=== PATIENT | female | born 1980 | race African-American/Black ===

== ENCOUNTER 2019-06-06 07:56 | Emergency (ER) | payer MEDICARE, MEDICAID ==
[~2019-06-06] VITALS: Ht 175.3 cm; Wt 106.7 kg
[~2019-06-06 07:56] MED LIST: HYDR25CA PO; TRAZ-219 PO
[2019-06-06 08:02] VITALS: BP 140/92
[2019-06-06] MEDS ORDERED: LIDOcaine 5% patch TP STA (08:20)
[2019-06-06] MEDS ORDERED: LIDO700A32 TOP (08:24)
[2019-06-06] MEDS ORDERED: ACET-2119 PO (08:24)
== END 2019-06-06 08:50 | disposition home or self-care (01) ==
LOC: ER 07:57
DX: M54.5 Low back pain (principal); M79.674 Pain in right toe(s); M25.561 Pain in right knee; I10 Essential (primary) hypertension; M19.90 Unspecified osteoarthritis, unspecified site; F41.9 Anxiety disorder, unspecified; F32.9 Major depressive disorder, single episode, unspecified; F15.90 Other stimulant use, unspecified, uncomplicated; Z98.890 Other specified postprocedural states; Z88.0 Allergy status to penicillin; Z88.2 Allergy status to sulfonamides; Z79.899 Other long term (current) drug therapy; W18.39XA Other fall on same level, initial encounter; Y93.01 Activity, walking, marching and hiking; Y92.89 Other specified places as the place of occurrence of the external cause; Y99.8 Other external cause status
CPT/HCPCS: 99283

== ENCOUNTER 2019-08-26 11:30 | Emergency (ER) | payer MEDICARE, MEDICAID ==
[~2019-08-26] VITALS: Ht 175.3 cm; Wt 106.4 kg
[~2019-08-26 11:30] MED LIST changes: +LIDO700A32 TOP
[2019-08-26 12:05] LABS: BASOPHILS % (AUTO) 0.6 % (0-1); EOSINOPHILS # (AUTO) 0.1 X10'3 (0-0.9); HEMATOCRIT 45.2 % (35.0-45.0); HEMOGLOBIN 15.9 g/dl (12.0-16.0); LYMPHOCYTES # (AUTO) 1.6 X10'3 (1.1-4.8); LYMPHOCYTES % (AUTO) 24.1 % (21-51); MEAN CORPUSCULAR HEMOGLOBIN 30.6 PG (27.0-31.0); MEAN CORPUSCULAR HGB CONC 35.1 g/dL (33.0-36.5); MEAN CORPUSCULAR VOLUME 87.1 FL (78-98); MEAN PLATELET VOLUME 7.2 FL (7.4-10.4); MONOCYTES # (AUTO) 0.5 X10'3 (0-0.9); MONOCYTES % (AUTO) 7.9 % (2-12); NEUTROPHILS # (AUTO) 4.4 X10'3 (1.8-7.7); NEUTROPHILS % (AUTO) 65.4 % (42-75); PLATELET COUNT 288 X10'3 (140-440); RED BLOOD COUNT 5.19 X10'6 (4.20-5.60); RED CELL DISTRIBUTION WIDTH 14.1 % (11.5-14.5); WHITE BLOOD COUNT 6.7 X10'3 (4.5-11.0)
[2019-08-26 12:20] LABS: ALANINE AMINOTRANSFERASE 15 U/L (12-78); ALBUMIN/GLOBULIN RATIO 0.9 (1.1-1.5); ALKALINE PHOSPHATASE 69 IU/L (46-116); ANION GAP 12 (8-16); ASPARTATE AMINO TRANSFERASE 11 U/L (10-37); BILIRUBIN,TOTAL 0.9 MG/DL (0.1-1.0); BLOOD UREA NITROGEN 9 MG/DL (7-18); BUN/CREATININE RATIO 9.2 (6.6-38.0); CALCIUM 9.4 MG/DL (8.5-10.1); CHLORIDE 105 MMOL/L (99-107); CREATININE 0.98 MG/DL (0.40-0.90); GLUCOSE 101 MG/DL (70-104); SODIUM 140 MMOL/L (135-145); TOTAL CARBON DIOXIDE 23.3 MMOL/L (24-32); TOTAL PROTEIN 8.3 G/DL (6.4-8.2); eGFR 76 ML/MIN
[2019-08-26 12:28] LABS: POTASSIUM 3.8 MMOL/L (3.5-5.1)
--- NOTE | 2019-08-26 12:50 | NUR ---
Pt ambulatory to the restroom to attempt to provide urine.
[2019-08-26] MEDS ORDERED: ketorolac trometh inj. 60 MG/2 ML VIAL IM ONE (13:00)
--- NOTE | 2019-08-26 13:11 | NUR ---
Pt given a liter of ice water to drink, with Physician approval prior to the US. Pt medicated as ordered for pain by staff nurse.
[2019-08-26 13:28] LABS: CLARITY,URINE CLOUDY (Clear); COLOR,URINE YELLOW (Yellow); GLUCOSE, URINE NEGATIVE (Neg); KETONES,URINE NEGATIVE (Neg); LEUKOCYTE ESTERASE ,URINE SMALL (Neg); NITRITES, URINE NEGATIVE (Neg); OCCULT BLOOD,URINE TRACE-INTACT (Neg); PH,URINE 7.5 (4.8-8.0); PROTEIN,URINE 30 mg/dl (Neg); URINE HCG NEGATIVE (NEG); UROBILINOGEN,URINE 0.2 E.U/dL (0.2-1.0)
[2019-08-26 13:32] LABS: UA COLLECTION TYPE CLN CATCH MIDSTREAM
[2019-08-26 13:50] VITALS: BP 153/110
[2019-08-26 14:01] LABS: BACTERIA,URINE 1+ /HPF (Neg); MUCUS STRANDS FEW /LPF (Neg); RBC,URINE 0-2 /HPF (0-2); SQUAMOUS EPITHELIAL CELL,UR MANY /LPF (FEW)
== END 2019-08-26 15:01 | disposition home or self-care (01) ==
LOC: ER 11:31
DX: R10.31 Right lower quadrant pain (principal); R10.32 Left lower quadrant pain; I10 Essential (primary) hypertension; M19.90 Unspecified osteoarthritis, unspecified site; F41.9 Anxiety disorder, unspecified; F32.9 Major depressive disorder, single episode, unspecified; F15.90 Other stimulant use, unspecified, uncomplicated; Z88.0 Allergy status to penicillin; Z88.2 Allergy status to sulfonamides; Z79.899 Other long term (current) drug therapy
CPT/HCPCS: 36415; 76856; 80053; 81001; 81025; 85025; 96372; 99284; J1885

== ENCOUNTER 2019-09-12 09:14 | Emergency (ER) | payer MEDICARE, MEDICAID ==
[~2019-09-12] VITALS: Ht 175.3 cm; Wt 93.5 kg
[2019-09-12] MEDS ORDERED: HYDROcodone/acetaminophen 5mg/325mg tablet PO STA (09:49)
[2019-09-12] MEDS ORDERED: ondansetron 4mg rapidly disintigrating tab PO ONE (09:50)
[2019-09-12] MEDS ORDERED: ketorolac trometh inj. 60 MG/2 ML VIAL IM ONE (09:50)
[2019-09-12] MEDS ORDERED: HYDR-3965 PO (10:01)
[2019-09-12] MEDS ORDERED: IBUP-1985 PO (10:05)
[2019-09-12 10:06] VITALS: BP 146/103
[2019-09-12] MEDS ORDERED: ESCI20TA PO (10:09)
[2019-09-12] MEDS ORDERED: LIDOcaine 5% patch TP ONE (10:20)
== END 2019-09-12 10:40 | disposition home or self-care (01) ==
LOC: ER 09:15
DX: S13.8XXA Sprain of joints and ligaments of other parts of neck, initial encounter (principal); S43.491A Other sprain of right shoulder joint, initial encounter; I10 Essential (primary) hypertension; M19.90 Unspecified osteoarthritis, unspecified site; F41.9 Anxiety disorder, unspecified; F32.9 Major depressive disorder, single episode, unspecified; F15.90 Other stimulant use, unspecified, uncomplicated; Z88.0 Allergy status to penicillin; Z88.2 Allergy status to sulfonamides; Z79.899 Other long term (current) drug therapy; X58.XXXA Exposure to other specified factors, initial encounter; Y93.89 Activity, other specified; Y92.89 Other specified places as the place of occurrence of the external cause; Y99.8 Other external cause status
CPT/HCPCS: 96372; 99284; J1885

== ENCOUNTER 2019-09-30 07:00 | Day surgery (SDC) | payer MEDICARE, MEDICAID ==
[2019-09-29 17:18] LABS: BASOPHILS # (AUTO) 0.1 X10'3 (0-0.2); BASOPHILS % (AUTO) 0.8 % (0-1); EOSINOPHILS # (AUTO) 0.2 X10'3 (0-0.9); EOSINOPHILS % (AUTO) 3.1 % (0-6); LYMPHOCYTES # (AUTO) 2.3 X10'3 (1.1-4.8); LYMPHOCYTES % (AUTO) 32.2 % (21-51); MEAN CORPUSCULAR HEMOGLOBIN 30.7 PG (27.0-31.0); MEAN CORPUSCULAR HGB CONC 35.2 g/dL (33.0-36.5); MEAN CORPUSCULAR VOLUME 87.1 FL (78-98); MEAN PLATELET VOLUME 7.5 FL (7.4-10.4); MONOCYTES # (AUTO) 0.6 X10'3 (0-0.9); MONOCYTES % (AUTO) 7.9 % (2-12); PRE OP HEMOGLOBIN 14.4 g/dL (12.0-16.0); PRE OP PLATELET COUNT 274 X10'3 (140-440); RED CELL DISTRIBUTION WIDTH 13.6 % (11.5-14.5)
[2019-09-29 17:32] LABS: ALBUMIN 3.6 G/DL (3.4-5.0); ALBUMIN/GLOBULIN RATIO 1.1 (1.1-1.5); ALKALINE PHOSPHATASE 61 IU/L (46-116); BLOOD UREA NITROGEN 10 MG/DL (7-18); BUN/CREATININE RATIO 8.4 (6.6-38.0); CALCIUM 8.9 MG/DL (8.5-10.1); CHLORIDE 104 MMOL/L (99-107); CREATININE 1.19 MG/DL (0.40-0.90); PRE OP ALT 11 U/L (30-65); PRE OP ANION GAP 10 (8-16); PRE OP AST 12 U/L (10-37); PRE OP BILIRUB, TOTAL 0.6 MG/DL (0.0-1.0); PRE OP GLUCOSE 89 MG/DL (70-104); PRE OP POTASSIUM 3.6 MMOL/L (3.4-5.1); PRE OP SODIUM 139 MMOL/L (135-145); eGFR 61 ML/MIN
[~2019-09-30] VITALS: Ht 175.3 cm; Wt 108.0 kg
[2019-09-30] VITALS (9 sets, daily range): BP systolic 114–164; BP diastolic 77–117
[~2019-09-30 07:00] MED LIST changes: +ESCI20TA PO; -HYDR25CA PO; -LIDO700A32 TOP; +albuterol 2.5 MG/3 ML nebule NEB ONE; +clindamycin-Cleocin 900mg/D5W 50 ML IV ONE; +famotidine 20mg tablet PO ONE; +ringers solution, lacted 1,000 ML IV SCH
[2019-09-30] MEDS ORDERED: ketorolac trometh. 30mg/ml inj. ONE (07:25)
[2019-09-30] MEDS ORDERED: ROPIVAcaine 0.5% (5mg/ml) 30ml vial ONE (07:25)
[2019-09-30] MEDS ORDERED: LIDOcaine 1% 30ml preserv. free vial ONE (07:25)
[2019-09-30] MEDS ORDERED: BUPIVAcaine/PF 2.5 mg/ml (0.25%) 30ml vial ONE (07:25)
[2019-09-30] MEDS ORDERED: ringers solution, lacted 1,000 ML IV SCH ×2 (08:38→09:51)
[2019-09-30] MEDS ORDERED: morphine 4 MG/ML inj SYRINge IV PRN ×4 (08:40→09:55)
[2019-09-30] MEDS ORDERED: ondansetron/PF 4mg/2ml inj IV PRN ×2 (08:40→09:55)
[2019-09-30] MEDS ORDERED: proCHLORperazine 10 MG/2 ml inj IV PRN ×2 (08:40→09:55)
[2019-09-30] MEDS ORDERED: meperidine/PF 25mg/ml syringe IV PRN ×5 (08:40→09:55)
[2019-09-30] MEDS ORDERED: midazolam 2 mg/2 ml injection ONE ×2 (08:47)
[2019-09-30] MEDS ORDERED: fentaNYL /PF 50mcg/ml 5ml ampule ONE (08:47)
[2019-09-30] MEDS ORDERED: propofol inj 20 ML IV ONE (08:48)
[2019-09-30] MEDS ORDERED: rocuronium 10mg/ml inj IV ONE (08:48)
[2019-09-30] MEDS ORDERED: sevoflurane 250ml liquid IH ONE (08:51)
[2019-09-30] MEDS ORDERED: neostigmine methylsulfate 1 MG/ML 10ml vial ONE (10:04)
[2019-09-30] MEDS ORDERED: labetalol 20mg/4ml (5mg/ml) syringe IV ONE (10:04)
[2019-09-30] MEDS ORDERED: glycopyrrolate 0.2mg/ml inj ONE (10:04)
--- NOTE | 2019-09-30 10:30 | NUR ---
Received from OR via BED , accompanied by Anesthesiologist DR GARCIA and report given by Anesthesiolgist. PATIENT WAKING UP, DENIES PAIN, V/S WNL, NEUROVASCULAR CHECKS INTACT, 20G PIV LUE, SCD ON, BANDAIDS TO LAP SIGHTS OF ABDOMEN CDI WITH ABD BINDER ON.
[2019-09-30] MEDS ORDERED: oxyCODONE/APAP 10/325mg tablet PO PRN ×2 (10:45)
[2019-09-30] MEDS: meperidine/PF 25mg/ml syringe IV PRN ×2 (10:52→11:03)
--- NOTE | 2019-09-30 11:30 | NUR ---
PATIENT A&OX4, DENIES PAIN, V/S WNL, NEUROVASCULAR CHECKS INTACT, 20G PIV LUE D/C, SCD OFF, BANDAIDS TO LAP SIGHTS OF ABDOMEN CDI WITH ABD BINDER ON. I HAVE REVIEWED D/C INSTRUCTIONS WITH PATIENT AND FAMILY HAVE VERBALIZED UNDERSTANDING.PATIENT WAS D/C HOME WITH ALL BELONGINGS AND FAMILY GAVE TRANSPORT HOME.
== END 2019-09-30 11:30 | disposition home or self-care (01) ==
LOC: PAS 07:00
PROVIDERS: ATTEND Surgery
DX: K43.6 Other and unspecified ventral hernia with obstruction, without gangrene (principal); F32.9 Major depressive disorder, single episode, unspecified; I12.9 Hypertensive chronic kidney disease with stage 1 through stage 4 chronic kidney disease, or unspecified chronic kidney disease; N18.9 Chronic kidney disease, unspecified; F41.9 Anxiety disorder, unspecified; E66.9 Obesity, unspecified; Z68.35 Body mass index [BMI] 35.0-35.9, adult; Z98.890 Other specified postprocedural states; Z79.899 Other long term (current) drug therapy; F17.210 Nicotine dependence, cigarettes, uncomplicated; Z88.0 Allergy status to penicillin; Z88.2 Allergy status to sulfonamides
CPT/HCPCS: 36415; 49653; 64488; 80053; 82948; 85025; 93005; C1781; J1885; J2001; J2175; J2250; J2704; J2710; J3010; J3490; A4215; A4618; J2795; J7120

== ENCOUNTER 2019-10-19 10:40 | Emergency (ER) | payer MEDICARE, MEDICAID ==
[~2019-10-19] VITALS: Ht 175.3 cm; Wt 120.0 kg
[~2019-10-19 10:40] MED LIST changes: -albuterol 2.5 MG/3 ML nebule NEB ONE; -clindamycin-Cleocin 900mg/D5W 50 ML IV ONE; -famotidine 20mg tablet PO ONE; -ringers solution, lacted 1,000 ML IV SCH
[2019-10-19 10:42] VITALS: BP 177/112
--- NOTE | 2019-10-19 11:33 | NUR ---
explained to pt. that a provider would be in to see her as soon as possible.
--- NOTE | 2019-10-19 11:37 | NUR ---
pt. left without being seen by a provider
== END 2019-10-19 11:39 | disposition left against medical advice (07) ==
LOC: ER 10:40
DX: K08.89 Other specified disorders of teeth and supporting structures (principal); Z53.21 Procedure and treatment not carried out due to patient leaving prior to being seen by health care provider

== ENCOUNTER 2022-02-16 13:27 | Emergency (ER) | payer MEDICARE, MEDICAID ==
[~2022-02-16] VITALS: Ht 175.3 cm; Wt 260.0 kg
[~2022-02-16 13:27] MED LIST changes: -TRAZ-219 PO; +TRAZ-256 PO
[2022-02-16 14:18] LABS: BASOPHILS # (AUTO) 0.1 X10'3 (0-0.2); BASOPHILS % (AUTO) 0.7 % (0-1); EOSINOPHILS # (AUTO) 0.1 X10'3 (0-0.9); EOSINOPHILS % (AUTO) 1.7 % (0-6); HEMATOCRIT 48.4 % (35.0-45.0); HEMOGLOBIN 16.3 g/dl (12.0-16.0); LYMPHOCYTES # (AUTO) 2.3 X10'3 (1.1-4.8); LYMPHOCYTES % (AUTO) 28.8 % (21-51); MEAN CORPUSCULAR HEMOGLOBIN 28.8 PG (27.0-31.0); MEAN CORPUSCULAR HGB CONC 33.6 g/dL (33.0-36.5); MEAN CORPUSCULAR VOLUME 85.9 FL (78-98); MEAN PLATELET VOLUME 7.7 FL (7.4-10.4); MONOCYTES # (AUTO) 0.5 X10'3 (0-0.9); MONOCYTES % (AUTO) 6.8 % (2-12); NEUTROPHILS # (AUTO) 4.9 X10'3 (1.8-7.7); PLATELET COUNT 288 X10'3 (140-440); RED BLOOD COUNT 5.64 X10'6 (4.20-5.60); WHITE BLOOD COUNT 7.9 X10'3 (4.5-11.0)
[2022-02-16 14:34] LABS: ALANINE AMINOTRANSFERASE 24 U/L (12-78); ALBUMIN/GLOBULIN RATIO 1.1 (1.1-1.5); ALKALINE PHOSPHATASE 64 IU/L (46-116); ANION GAP 9 (8-16); ASPARTATE AMINO TRANSFERASE 18 U/L (10-37); BILIRUBIN,TOTAL 0.9 MG/DL (0.1-1.0); BLOOD UREA NITROGEN 11 MG/DL (7-18); BUN/CREATININE RATIO 11.6 (6.6-38.0); CALCIUM 9.3 MG/DL (8.5-10.1); CHLORIDE 105 MMOL/L (99-107); CREATININE 0.95 MG/DL (0.40-0.90); GLUCOSE 99 MG/DL (70-104); POTASSIUM 3.8 MMOL/L (3.5-5.1); SODIUM 140 MMOL/L (135-145); TOTAL PROTEIN 7.7 G/DL (6.4-8.2); eGFR 78 ML/MIN
[2022-02-16 15:27] VITALS: BP 147/78
== END 2022-02-16 15:28 | disposition home or self-care (01) ==
LOC: ER 13:28
DX: R42 Dizziness and giddiness (principal); I10 Essential (primary) hypertension; R09.81 Nasal congestion; M19.90 Unspecified osteoarthritis, unspecified site; F15.90 Other stimulant use, unspecified, uncomplicated; Z72.89 Other problems related to lifestyle; Z88.0 Allergy status to penicillin; Z88.2 Allergy status to sulfonamides; Z79.899 Other long term (current) drug therapy
CPT/HCPCS: 36415; 71045; 80053; 83880; 84484; 85025; 93005; 99285

== ENCOUNTER 2022-05-16 14:35 | Inpatient (IN) | payer MEDICARE, MEDICAID ==
[~2022-05-16] VITALS: Ht 175.3 cm; Wt 103.2 kg
[2022-05-16 16:15] VITALS: BP 159/104
[2022-05-16] MEDS ORDERED: loperamide 2mg capsule PO PRN (16:30)
[2022-05-16] MEDS ORDERED: magnesium hydroxide 30ml (MOM) UD suspension PO PRN (16:30)
[2022-05-16] MEDS ORDERED: NICOTINE POLACRILEX 2 MG LOZENGE BC PRN (16:30)
[2022-05-16] MEDS: acetaminophen 325mg tablet PO PRN (16:50)
[2022-05-16] MEDS ORDERED: nicotine 21mg patch - 24 hr TD ONE (17:25)
--- NOTE | 2022-05-16 17:42 | NUR ---
ADMIT NOTE Patient is a 42 y/o female on a 5150 for Grave Disability. Transferred from [facility] by [facility] and admitted to [facility] at 1615. She was [place] from the [place] on [place]13 after she had been standing in it for a few hours. She stated she did this to cool down. She presented at the ER with disorganized thoughts and rambling speech without a plan for food, senior care, and clothing. She has a hx of multiple psychiatric hospitalizations and is connected to services at [facility]. Tox + amphetamines Patient was calm and cooperative with admission process. Thoughts are linear and goal directed. Denies active S/I, but states she does sometimes wish she would go to sleep and not wake up. Safety check completed and belongings inventoried. Oriented to unit. 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 She receives prescription amphetamine salts (verified by external med hx)
[2022-05-16] MEDS ORDERED: HYDR-3686 PO ×2 (18:00→18:04)
[2022-05-16 20:25] VITALS: BP 131/94
[2022-05-16] MEDS: nystatin 15 GM powder TP SCH (20:30)
[2022-05-16] MEDS: mag hydrox/Alum hydrox/simeth 30ml oral suspension PO PRN (22:18)
[2022-05-17] MEDS: hydrOXYzine 25 MG tablet PO PRN ×2 (00:25→21:14)
[2022-05-17] MEDS: traZODone 50mg tablet PO PRN ×2 (00:33→21:15)
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
[2022-05-17 07:41] VITALS: BP 134/94
[2022-05-17] MEDS: nystatin 15 GM powder TP SCH ×2 (08:00→21:15)
[2022-05-17] MEDS: nicotine 21mg patch - 24 hr TD SCH (08:00)
--- NOTE | 2022-05-17 09:43 | NUR ---
Pt. attended group today. Today we discussed Wellness and utilized the Self Care Wheel to help Patients determine the wellness/self-care activities they enjoy in each domain presented in the wheel. The four domains are the physical, spiritual, emotional and physical. We then did an art expression call Path to Wellness. Pt. engaged in the group appropriately. She engaged in the Art Expression and shared her thoughts and feelings appropriately. Her demeanor was pleasant and compliant. She was able to show what her steps to wellness are, much of her steps centered around her spirituality. Her thought content and thought process appeared WNL today when sharing. She was alert and oriented X 4. Linsey Melton LCSW
[2022-05-17 09:55] LABS: HEMOGLOBIN A1C 5.2 % (4.5-6.2)
[2022-05-17 09:58] LABS: CHOL/HDL RATIO 5.5 (0.00-4.99); CHOLESTEROL 191 MG/DL (0-200); HDL CHOLESTEROL 35 MG/DL (35-60); LDL CHOLESTEROL 142 MG/DL (50-100); TRIGLYCERIDES 79 MG/DL (20-135)
[2022-05-17] MEDS: acetaminophen 325mg tablet PO PRN ×2 (11:32→17:17)
--- NOTE | 2022-05-17 16:56 | NUR ---
Nursing Progress Note: Mary Problem : Patient is a 42 y/o female on a 5150 for Grave Disability. Transferred from [facility] by [facility] and admitted to [facility] at 1615. She was [place] from [place] on 05[place]13 after she had been standing in it for a few hours. She stated she did this to cool down. She presented at the ER with disorganized thoughts and rambling speech without a plan for food, chcf, and clothing. She has a hx of multiple psychiatric hospitalizations and is connected to services at [facility]. Pt. reports feeling hopeless and was tearful. Interventions : Maintained a safe and supportive environment, administered medication per orders with no adverse side effects, provided clear and simple instructions, provided active listening and positive encouragement, encouraged participation on the unit and with ADLs Response : Pt. denies SI, HI, A/VH, she denies any recent SA instead stating the river was just a cool off pt. does endorses MH Hx with supportive medications, she states my recent problem was my medications were changed Pt. communicates in a slow pace, but doesnt appear guarded. She reports BLE burning and pain provider notified and PRN Tylenol given; not effective. This afternoon pt. approached travel writer elyssa and regional support, she reported she had a phone call with her mother resulting in her feeling alone and without any family support Pt. ate all her meals in the main ding room she was observed making eye contact but doesnt engage socially. She attended group today. Plan : Patient requires crisis stabilization. She continues to require a safe and supportive environment until stabilized.
[2022-05-17] MEDS ORDERED: venlafaxine XR 37.5mg cap (Q24H) PO ONE (19:15)
[2022-05-17 20:00] VITALS: BP 117/82
--- NOTE | 2022-05-18 02:16 | NUR ---
Nursing Progress Note: Mary Problem : Patient is a 42 y/o female on a 5150 for Grave Disability. Transferred from [facility] by [facility] and admitted to [facility] at 1615. She was [place] from the [place] on 05/13 after she had been standing in it for a few hours. She stated she did this to cool down. She presented at the ER with disorganized thoughts and rambling speech without a plan for food, correction, and clothing. She has a hx of multiple psychiatric hospitalizations and is connected to services at [facility]. Pt. reports feeling hopeless and was tearful. Interventions : Maintained a safe and supportive environment, administered medication per orders with no adverse side effects, provided clear and simple instructions, provided active listening and positive encouragement, encouraged participation on the unit and with ADLs Response : Pt isolates to her room most of the shift laying down quietly and then sleeping. She is cooperative on 1:1 denies SI/HI/AH/VH at this time. She does state she feels alone and depressed because her mother said mean things to her on the phone. "I thought I had support but now I think I have no one." RN offers reassurance to pt and therapeutic listening. She gets teary eyed while talking about her mother but soon calms down. She utilizes PRN trazodone and atarax with good effect. Plan : Patient requires crisis stabilization. She continues to require a safe and supportive environment until stabilized.
[2022-05-18] MEDS: nicotine 21mg patch - 24 hr TD SCH (07:16)
[2022-05-18] MEDS: venlafaxine XR 75mg capsule (Q24H) PO SCH (07:16)
[2022-05-18] MEDS: atorvastatin 20mg tablet PO SCH (07:16)
[2022-05-18 08:00] VITALS: BP 134/86
[2022-05-18] MEDS: nystatin 15 GM powder TP SCH ×2 (08:00→20:00)
[2022-05-18] MEDS: acetaminophen 325mg tablet PO PRN (08:01)
[2022-05-18 14:03] VITALS: BP 134/86
--- NOTE | 2022-05-18 14:10 | NUR ---
Assessment: Presenting Issues: LE found pt floating [place] the [place], pt was disorganized & confused and unable to communicate needs, pt evaluated and 5150 due to DTS concerns. Interventions: Clinician met w/pt & engaged her in completing the psychosocial assessment. Pt was pleasant & cooperative. Pt verbalized significant anxiety associated w/d/c worries that she will not be able to manage w/o support upon d/c. Pt reports that she is currently homeless, has SSI-901/mo and she manages her own $. Pt endorses depressive sxs- negative self esteem, belief that she has "nothing". MSE: TP-linear & logical TC-focused on losses & housing Mood-Anxious, depressed Affect-mood congruent Fbaskvy-Rjas-tihsngj as pt is impulsive w/decision making Judgement-guarded Pt expressed that she's not ready to d/c yet wants to stay "here forever". Clinician provided info about [facility] pt open to this but right away went to worries about what happens if it takes [facility] too long to find me housing. Pt requested for housing w/on site med support. Plan: Clinician will provide [facility] referral when appropriate. Addendum: 05/18/22 at 1423 by Lyssa Otero SS Amended: Links added.
--- NOTE | 2022-05-18 16:50 | NUR ---
Nursing Progress Note: Mary Problem : Patient is a 42 y/o female on a 5150 for Grave Disability. Transferred from [facility] by [facility] and admitted to [facility] at 1615. She was [place] on 05/13 after she had been standing in it for a few hours. She stated she did this to cool down. She presented at the ER with disorganized thoughts and rambling speech without a plan for food, alf, and clothing. She has a hx of multiple psychiatric hospitalizations and is connected to services at [facility]. Pt. reports feeling hopeless and was tearful. Interventions : Maintained a safe and supportive environment, administered medication per orders with no adverse side effects, provided clear and simple instructions, provided active listening and positive encouragement, encouraged participation on the unit and with ADLs Response : Pt. denies SI, HI, A/VH, she presents more optimistic and is looking forward to discharge. Pt. denies depression and has been out of her room more often today. Pt. requested and took a shower and participated in group. She ate all meals in the dining room and socializes with a few other female cohorts. She reported BLE pain PRN Tylenol; not too effective. Plan : Patient requires crisis stabilization. She continues to require a safe and supportive environment until stabilized.
[2022-05-18 20:00] VITALS: BP 123/70
[2022-05-18] MEDS: hydrOXYzine 25 MG tablet PO PRN (20:43)
[2022-05-18] MEDS: traZODone 50mg tablet PO PRN (20:43)
[2022-05-18 21:42] VITALS: BP 123/70
--- NOTE | 2022-05-18 23:41 | NUR ---
Nursing Progress Note: Mary Problem : Patient is a 42 y/o female on a 5150 for Grave Disability. Transferred from [facility] by [facility] and admitted to [facility] at 1615. She was [place] from the [place] on 05/13 after she had been standing in it for a few hours. She stated she did this to cool down. She presented at the ER with disorganized thoughts and rambling speech without a plan for food, half-way, and clothing. She has a hx of multiple psychiatric hospitalizations and is connected to services at [facility]. Pt. reports feeling hopeless and was tearful. Interventions : Maintained a safe and supportive environment, administered medication per orders with no adverse side effects, provided clear and simple instructions, provided active listening and positive encouragement, encouraged participation on the unit and with ADLs Response : Pt remains in her room the entirety of the shift. She states she is feeling better today now that she spoke with her mother who she previously thought disowned her. "She is going to buy me slippers from [employer] and some other stuff I need and maybe visit me." She is upbeat and more content this shift. She denies all MH symptoms. She utilizes PRN trazodone and atarax with good effect. Plan : Patient requires crisis stabilization. She continues to require a safe and supportive environment until stabilized.
[2022-05-19] MEDS: atorvastatin 20mg tablet PO SCH (07:18)
[2022-05-19] MEDS: venlafaxine XR 75mg capsule (Q24H) PO SCH (07:18)
[2022-05-19] MEDS: nicotine 21mg patch - 24 hr TD SCH (07:19)
[2022-05-19] MEDS: acetaminophen 325mg tablet PO PRN ×2 (07:19→15:03)
[2022-05-19 08:00] VITALS: BP 133/84
[2022-05-19] MEDS: nystatin 15 GM powder TP SCH ×2 (08:00→20:09)
[2022-05-19] MEDS: mag hydrox/Alum hydrox/simeth 30ml oral suspension PO PRN (11:07)
--- NOTE | 2022-05-19 15:56 | NUR ---
Nursing Progress Note: Mary Problem: Patient is a 42 y/o female on a 5150 for Grave Disability. Transferred from [facility] by [facility] and admitted to [facility] at 1615. She was [place] from [place] on 05[place]13 after she had been standing in it for a few hours. She stated she did this to cool down. She presented at the ER with disorganized thoughts and rambling speech without a plan for food, senior living, and clothing. She has a hx of multiple psychiatric hospitalizations and is connected to services at [facility]. Pt. presents as upbeat, well groomed, and socializing more today. Interventions: Maintained a safe and supportive environment, administered medication per orders with no adverse side effects, provided clear and simple instructions, provided active listening and positive encouragement, encouraged participation on the unit and with ADLs Response: Pt. denies SI, HI, A/VH, she denies depression and has been out of her room more, and attended group. Pt. was observed socializing with roommate. Pt. remains upbeat and received clothing from her mother which appeared to make her happy. She ate all meals in the dining room and socializes with others. She reported BLE pain PRN Tylenol; not too effective; provider to be updated today. Plan: Patient requires crisis stabilization. She continues to require a safe and supportive environment until stabilized.
[2022-05-19 19:45] VITALS: BP 115/79
[2022-05-19] MEDS: hydrOXYzine 25 MG tablet PO PRN (20:05)
[2022-05-19] MEDS: traZODone 50mg tablet PO PRN (22:12)
--- NOTE | 2022-05-20 00:37 | NUR ---
Nursing Progress Note: Mary Problem : Patient is a 42 y/o female on a 5150 for Grave Disability. Transferred from [facility] by [facility] and admitted to [facility] at 1615. She was [place] from the [place] on 05/13 after she had been standing in it for a few hours. She stated she did this to cool down. She presented at the ER with disorganized thoughts and rambling speech without a plan for food, half-way, and clothing. She has a hx of multiple psychiatric hospitalizations and is connected to services at [facility]. Pt. reports feeling hopeless and was tearful. Interventions : Maintained a safe and supportive environment, administered medication per orders with no adverse side effects, provided clear and simple instructions, provided active listening and positive encouragement, encouraged participation on the unit and with ADLs Response : Pt lying in bed at shift change. Pt 1:1, pt denies MH S/S. The pt reports wanting to go to bed earlier tonight and wants her medications given early. it was explained to the pt that med pass starts at 8PM and that I could make sure that her medications were given first, which she was okay with. The pt then stated that she was tired all day and would like to try to take Hydroxyzine instead of the trazodone. pt took hydroxyzine at med pass, an hour later the pt got up and exclaimed that she needed the Trazodone to sleep as she did not feel tired. The pt was given the Trazodone and fell asleep shortly after. Plan : Patient requires crisis stabilization. She continues to require a safe and supportive environment until stabilized.
[2022-05-20] MEDS: nystatin 15 GM powder TP SCH ×2 (07:55→20:50)
[2022-05-20] MEDS: nicotine 21mg patch - 24 hr TD SCH (07:55)
[2022-05-20] MEDS: atorvastatin 20mg tablet PO SCH (07:56)
[2022-05-20] MEDS: venlafaxine XR 75mg capsule (Q24H) PO SCH (07:56)
[2022-05-20] MEDS: acetaminophen 325mg tablet PO PRN ×2 (07:58→18:49)
[2022-05-20 08:32] VITALS: BP 141/72
--- NOTE | 2022-05-20 10:34 | NUR ---
Initial: Pt admit for MDD and psychosis. Currently on a regular diet and eating well with mostly 100% PO intake throughout LOS. [facility] 05/18, with PRN bowel care available. No nutrition intervention implemented at this time. Will continue to follow and make recommendations as appropriate. Recommendations: 1) Continue regular diet 2) Bowel care PRN 3) Weekly scaled weights Addendum: 05/20/22 at [address] Amended: Links added.
[2022-05-20] MEDS: calcium carbonate 500mg chew tablet PO PRN (12:40)
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
[2022-05-20 19:23] VITALS: BP 111/76
[2022-05-20] MEDS: hydrOXYzine 25 MG tablet PO PRN (20:01)
[2022-05-20] MEDS: traZODone 50mg tablet PO PRN (20:01)
--- NOTE | 2022-05-21 00:45 | NUR ---
Nursing Progress Note: Mary Problem : Patient is a 42 y/o female on a 5150 for Grave Disability. Transferred from [facility] by [facility] and admitted to [facility] at 1615. She was [place] from [place] on 05/13 after she had been standing in it for a few hours. She stated she did this to cool down. She presented at the ER with disorganized thoughts and rambling speech without a plan for food, fpc, and clothing. She has a hx of multiple psychiatric hospitalizations and is connected to services at [facility]. Pt. reports feeling hopeless and was tearful. Interventions : Maintained a safe and supportive environment, administered medication per orders with no adverse side effects, provided clear and simple instructions, provided active listening and positive encouragement, encouraged participation on the unit and with ADLs Response : Patient in room at shift change. Pt reports that she wants to switch rooms due to having her own room in other facilities. Pt states that she likes her roommate but just wants to be alone. The Pt denies all MH S/S. Patient asked for both Hydroxyzine and Trazodone at bedtime for anxiety and sleep. Pt took evening meds w/o complications. Pt was able to sleep shortly after. Refused snack. Plan : Patient requires crisis stabilization. She continues to require a safe and supportive environment until stabilized.
[2022-05-21 08:00] VITALS: BP 140/90
[2022-05-21] MEDS: nicotine 21mg patch - 24 hr TD SCH (08:15)
[2022-05-21] MEDS: atorvastatin 20mg tablet PO SCH (08:15)
[2022-05-21] MEDS: venlafaxine XR 75mg capsule (Q24H) PO SCH (08:15)
[2022-05-21] MEDS: nystatin 15 GM powder TP SCH (08:15)
[2022-05-21] MEDS: acetaminophen 325mg tablet PO PRN ×3 (08:16→21:58)
[2022-05-21] MEDS ORDERED: LORazepam 0.5 MG tablet PO ONE (08:50)
--- NOTE | 2022-05-21 08:51 | NUR ---
PRNs Administered: Ativan 0.5mg once for anxiety Interventions Offered: Pt. was provided with a quiet environment free from distractions. Response to Medication: Pt. thanked this auto service writer for the medication, will continue to monitor closely
--- NOTE | 2022-05-21 10:07 | NUR ---
Pt's ordered Nystatin powder for under bilateral breasts was changed to Nystatin Cream per Dr. Hodges. A small amount of redness is present at areas, however no s/s of infection.
[2022-05-21] MEDS: hydrOXYzine 25 MG tablet PO PRN (13:49)
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
[2022-05-21 19:41] VITALS: BP 127/71
[2022-05-21] MEDS: LORazepam 0.5 MG tablet PO SCH (20:06)
[2022-05-21] MEDS: NYSTATIN CREAM - 30GM TUBE TP SCH (20:07)
[2022-05-21] MEDS ORDERED: aripiprazole 5mg tablet PO SCH (21:00)
[2022-05-21] MEDS: traZODone 50mg tablet PO PRN (21:59)
--- NOTE | 2022-05-22 01:45 | NUR ---
Nursing Progress Note: Problem : Patient is on a 5150 for Grave Disability. She was [place] from the [place] on 05[place]13 after she had been standing in it for a few hours. She stated she did this to cool down. She presented at the ER with disorganized thoughts and rambling speech without a plan for food, fci, and clothing. She has a hx of multiple psychiatric hospitalizations and is connected to services at [facility]. Interventions : Introduced self and established rapport, maintained a safe and supportive environment, ensured contract for safety, provided clear and simple instructions, provided active listening and positive encouragement, monitored rash under bilateral breasts and applied Nystatin Cream, and maintained Q 15min safety checks. Response: Pt up on unit at start of shift. Per pt god whom she calls Rani answers yes or no questions for her by causing her head to shake yes or no. Pt knows it is God because it leads to good things happening. She used the example of the voices telling her to brewing technician the river that led to the police bringing her here where she can get help. Pt was pleasant and cooperative took all meds went to sleep. Plan :Pt. continues to require a safe and supportive environment and medication adjustments.
[2022-05-22] MEDS: acetaminophen 325mg tablet PO PRN (06:48)
[2022-05-22] MEDS: cloNIDine 0.1 mg tablet PO SCH (07:49)
[2022-05-22] MEDS: LORazepam 0.5 MG tablet PO SCH ×3 (07:49→20:08)
[2022-05-22] MEDS: venlafaxine XR 75mg capsule (Q24H) PO SCH (07:49)
[2022-05-22] MEDS: atorvastatin 20mg tablet PO SCH (07:49)
[2022-05-22] MEDS: nicotine 21mg patch - 24 hr TD SCH (07:50)
[2022-05-22 08:00] VITALS: BP 118/78
--- NOTE | 2022-05-22 10:39 | NUR ---
CM-Pre-dcp Presenting Issues: Pt's on 5250, Hearing is this afternoon. Pt continues to struggle w/dcp activities. Interventions: Clinician met w/pt and engaged her in dcp activities, per session, pt continues to exhibit heightened anxiety associated w/having to live on her own and fearing that she won't be able to manage some of her ADLs on her own. Pt was able to identify her needs and the resources that can support her when d/c; pt identify stable housing as biggest concern and noted that she needs support to be able to live independently. Pt noted needing someone to manage her meds, assist w/paying bills, transportation to appointments, grocery shopping and meal prep and providing a sense of security. Pt states, "if I can live in a place that has someone there all the time to help me I'd be fine." Pt was agreeable to [facility] referral for additional support w/housing needs. Plan: Clinician will provide CR referral. Lyssa Otero LCSW Addendum: 05/22/22 at 1046 by Lyssa Otero SS Amended: Links added.
[2022-05-22] MEDS: NYSTATIN CREAM - 30GM TUBE TP SCH ×2 (11:17→20:51)
[2022-05-22] MEDS ORDERED: gabapentin 100mg capsule PO ONE (12:10)
[2022-05-22] MEDS: gabapentin 100mg capsule PO SCH ×2 (12:55→20:09)
[2022-05-22] MEDS ORDERED: gabapentin 400mg capsule PO SCH (13:00)
--- NOTE | 2022-05-22 14:33 | NUR ---
5250 UPHELD FILIPE Ba
[2022-05-22] MEDS: hydrOXYzine 25 MG tablet PO PRN (17:20)
[2022-05-22] MEDS: ibuprofen tablet 400 MG TABLET PO SCH (17:20)
--- NOTE | 2022-05-22 17:59 | NUR ---
Nursing Progress Notes: Problem: Patient is a 42 y/o female on a 5150 for Grave Disability. Transferred from [facility] by [facility] and admitted to [facility] on 05/16/22. She was pulled from the [facility] on 05/13 after she had been standing in it for a few hours. She stated she did this to cool down. She presented at the ER with disorganized thoughts and rambling speech without a plan for food, jail, and clothing. She has a history of multiple psychiatric hospitalizations and is connected to services at [facility]. Interventions: Received patient while she was sitting up in a chair in her room. Patient immediately asked for Tylenol at 0648 to help her with bilateral leg pain rated at a 7 on a scale of 1-10. Patient took her medications without hesitation. Patient was pleasant and talkative with noted anxiety per her report. Patient receiving Ativan 3 times/day with good relief. Patient had shower/shave. Patient c/o really bad leg pain, and reported it to Dr. Hodges during their visit. Received order for Neurontin 100mg orally stat at 1210 then repeat (next dose given at 1300). Response: At 1515 patient reported severe pain on the side of her left thigh, and also reported no relief from pain after taking 2 doses of Neurontin. Patient informed this ticket writer that Dr. Hodges would be returning at 4:00 pm, and she would let him know that she has not received relief from her leg pain. Patient refused dose of Tylenol during the rest of the day. Patient informed I want to see how this works, and its not so Im going to let Dr. Hodges know. TC to Dr. Hodges and received new orders for Ibuprofen 400 mg po tid. Administered first dose with Atarax at 1730. Plan: Patient requires crisis stabilization. She continues to require a safe and supportive environment until stabilized. Patient requires medication changes to receive pain relief from bilateral leg pain.
[2022-05-22 19:35] VITALS: BP 127/77
[2022-05-22] MEDS ORDERED: aripiprazole 5mg tablet PO SCH (21:00)
[2022-05-22] MEDS: traZODone 50mg tablet PO PRN (22:38)
--- NOTE | 2022-05-23 00:11 | NUR ---
Nursing Progress Note: Mary Problem : Patient is a 42 y/o female on a 5150 for Grave Disability. Transferred from [facility] by [facility] and admitted to [facility] at 1615. She was pulled from the [place] on 05/13 after she had been standing in it for a few hours. She stated she did this to cool down. She presented at the ER with disorganized thoughts and rambling speech without a plan for food, intermediate, and clothing. She has a hx of multiple psychiatric hospitalizations and is connected to services at [facility]. Pt. reports feeling hopeless and was tearful. Interventions : Maintained a safe and supportive environment, administered medication per orders with no adverse side effects, provided clear and simple instructions, provided active listening and positive encouragement, encouraged participation on the unit and with ADLs Response : Patient in room lying down at shift change. Patient reports that her legs have been hurting and asked about her gabapentin, it was explained to the patient that she would receive her Gabapentin at bed time with the rest of her evening meds. Patient denies any MH S/S. The pt refused snack. The pt took all evening meds w/o complications. The pt woke up at 2200 and asked if she could have a Trazodone for sleep. Patient given 100mg of Trazodone and fell asleep shortly after. Plan : Patient requires crisis stabilization. She continues to require a safe and supportive environment until stabilized.
[2022-05-23] MEDS: acetaminophen 325mg tablet PO PRN (05:49)
[2022-05-23 08:00] VITALS: BP 100/71
[2022-05-23] MEDS: NYSTATIN CREAM - 30GM TUBE TP SCH ×2 (08:00→20:00)
[2022-05-23] MEDS ORDERED: LORazepam 1 MG tablet PO ONE (08:10)
[2022-05-23] MEDS ORDERED: HYDROcodone/acetaminophen 5mg/325mg tablet PO ONE (08:10)
[2022-05-23] MEDS ORDERED: LORazepam 1 MG tablet PO PRN (08:10)
[2022-05-23 08:15] LABS: ALANINE AMINOTRANSFERASE 29 U/L (12-78); ALBUMIN 3.1 G/DL (3.4-5.0); ALKALINE PHOSPHATASE 45 IU/L (46-116); ANION GAP 4 (8-16); ASPARTATE AMINO TRANSFERASE 26 U/L (10-37); BILIRUBIN,TOTAL 0.7 MG/DL (0.1-1.0); BLOOD UREA NITROGEN 14 MG/DL (7-18); BUN/CREATININE RATIO 13.2 (6.6-38.0); CALCIUM 8.6 MG/DL (8.5-10.1); CHLORIDE 105 MMOL/L (99-107); CREATININE 1.06 MG/DL (0.40-0.90); GLUCOSE 89 MG/DL (70-104); POTASSIUM 4.2 MMOL/L (3.5-5.1); SODIUM 138 MMOL/L (135-145); TOTAL CARBON DIOXIDE 28.9 MMOL/L (24-32); TOTAL PROTEIN 6.2 G/DL (6.4-8.2); eGFR 68 ML/MIN
[2022-05-23] MEDS: nicotine 21mg patch - 24 hr TD SCH (08:20)
[2022-05-23] MEDS: aripiprazole 5mg tablet PO SCH (08:20)
[2022-05-23] MEDS: ibuprofen tablet 400 MG TABLET PO SCH ×3 (08:21→17:40)
[2022-05-23] MEDS: cloNIDine 0.1 mg tablet PO SCH (08:22)
[2022-05-23] MEDS: atorvastatin 20mg tablet PO SCH (08:22)
[2022-05-23] MEDS: venlafaxine XR 75mg capsule (Q24H) PO SCH (08:27)
[2022-05-23] MEDS: LORazepam 0.5 MG tablet PO SCH ×3 (08:29→20:32)
--- NOTE | 2022-05-23 09:00 | NUR ---
CM Clinician completed & submitted [facility] referral to facilitate pt's access to [facility]'s interview. Lyssa Otero MORTGAGE CLOSING CLERK Addendum: 05/23/22 at 0901 by Lyssa Otero SS Amended: Links added.
[2022-05-23] MEDS: LIDOcaine 5% patch TP SCH (09:04)
--- NOTE | 2022-05-23 10:41 | NUR ---
CM-Linkages Presenting Issues: Pt's 5250 will on 06/02, pt is homeless a referral to [facility] was recently submitted. Interventions: Per e-mailed communication from SCM-[facility]'s office, [facility] currently has no open female beds, there maybe a couple of discharges on 05/25 and there are 2 other referrals ahead of pt's. [facility] will check to see of [facility] can schedule interview w/pt. Plan: Clinician will continue to monitor and engage [facility] in dcp activities as appropriate. Lyssa Otero LCSW Addendum: 05/23/22 at 1054 by Lyssa Otero SS Amended: Links added.
--- NOTE | 2022-05-23 14:06 | NUR ---
CM-Linkages Presenting Issues: Pt's on 5249 which will on 06/02, per attending physician, pt's stable and close to discharging. Interventions: Clinician notified [facility] of pt's progress and requested interview for [facility]. Per communication w/NESSA/B[facility], [facility] PM will interview pt tomorrow @ 3PM. Care team notified. Plan: Clinician will continue to monitor and collaborate w/NESSA/[facility]ON w/re to pt's dcp. Lyssa Otero LCSW Addendum: 05/23/22 at 1411 by Lyssa Otero SS Amended: Links added.
--- NOTE | 2022-05-23 16:57 | NUR ---
Nursing Progress Notes: Problem: Patient is a 42 y/o female on a 5150 for Grave Disability. Transferred from [facility] by [facility] and admitted to [facility] on 05/16/22. She was pulled from the [facility] on 05/13 after she had been standing in it for a few hours. She stated she did this to cool down. She presented at the ER with disorganized thoughts and rambling speech without a plan for food, half-way, and clothing. She has a history of multiple psychiatric hospitalizations and is connected to services at [facility]. Interventions: Patient awoke at approximately 0630 and informed me that she had already received Tylenol and her pain level was about a 4. Patient went to the Community Room for breakfast at 0810, and while eating breakfast started to choke on some food product, and got up away from the table and returned to her room. Followed patient to her room to administer her morning medications (she had already seen Dr. Hodges), and patient started yelling at this technical publications writer Im sitting in the dining room choking, and no one cares about me. No one cares about me or my pain. Im so much worse, you dont know what you are doing to me. Quit ignoring me and help me get my body feeling better. You are trying to kill me. Informed the patient that I had her morning medications to give her now with me. Patient continued yelling and Dr. Hodges entered pts room and I received the following stat orders: [place] 5/325mg po now, Ativan 1mg po now, then tid prn anxiety, Stop Neurontin, Lidocaine patch to affected area once a day. entry level installation technician completed. Dr. Hodges had also made changes to the Patients medication profile this morning by adding: Abilify 10mg po at 0800 (previously taken at ), Increase Effexor from 75 mg po qd to Effexor 150mg po qd at 0800. All medications administered as ordered by MD and Lidocaine patch applied to left outer thigh. Patient laid down and immediately went to sleep in her bed. Pt aroused x1 at 0955 and ambulated to door of RN Charting Room and with slurred speech asked for more water. Patient ate lunch in the Community Room then returned to her bed to sleep. Patient received Ativan 0.5 mg po at 1300 & Motrin then fell to sleep. Response: Patient appeared much more comfortable when she was out of bed at 1000. Patient was able to return to resting at 1300, and is still resting in bed. Will continue to monitor the patients condition and response to pain medications closely. Plan: Patient requires crisis stabilization. She continues to require a safe and supportive environment until stabilized. Patient requires medication changes to receive pain relief from bilateral leg pain.
[2022-05-23 20:00] VITALS: BP 130/79
[2022-05-23] MEDS: traZODone 50mg tablet PO PRN (20:32)
--- NOTE | 2022-05-24 00:39 | NUR ---
Nursing Progress Notes: Mary Problem: Patient is a 42 y/o female on a 5150 for Grave Disability. Transferred from [facility] by [facility] and admitted to [facility] on 05/16/22. She was pulled from the [place] on 05/13 after she had been standing in it for a few hours. She stated she did this to cool down. She presented at the ER with disorganized thoughts and rambling speech without a plan for food, chcf, and clothing. She has a history of multiple psychiatric hospitalizations and is connected to services at [facility]. Interventions: Maintained a safe and supportive environment, administered medication per orders with no adverse side effects, provided clear and simple instructions, provided active listening and positive encouragement, encouraged participation on the unit and with ADLs. Response: Received pt lying in bed resting. Pt states she is miserable reports bilateral lower leg pain /10. Explained to the pt she just received some Motrin an hour ago. Pt stated she sat in the freezing [place] for 2 hours and now has neuropathy in both legs. Pt states depression and anxiety 6/10; 1MG of Ativan given with good effect. Pt up for snacks and took all HS medications without issue and returned to bed. Plan: Patient requires crisis stabilization. She continues to require a safe and supportive environment until stabilized. Patient requires medication changes to receive pain relief from bilateral leg pain.
[2022-05-24] MEDS: acetaminophen 325mg tablet PO PRN ×2 (03:03→14:36)
[2022-05-24] MEDS: hydrOXYzine 25 MG tablet PO PRN ×2 (03:06→16:50)
--- NOTE | 2022-05-24 03:08 | NUR ---
Sleep Note: Pt woke requesting pain medication for bilateral pain 04/21 and anxiety /. PRN Tylenol given and 50MG of atarax given with good effect.
[2022-05-24] MEDS: cloNIDine 0.1 mg tablet PO SCH (07:22)
[2022-05-24] MEDS: nicotine 21mg patch - 24 hr TD SCH (07:22)
[2022-05-24] MEDS: LIDOcaine 5% patch TP SCH (07:22)
[2022-05-24] MEDS: venlafaxine XR 75mg capsule (Q24H) PO SCH (07:23)
[2022-05-24] MEDS: ibuprofen tablet 400 MG TABLET PO SCH ×3 (07:23→16:55)
[2022-05-24] MEDS: atorvastatin 20mg tablet PO SCH (07:23)
[2022-05-24] MEDS: aripiprazole 5mg tablet PO SCH (07:23)
[2022-05-24] MEDS: calcium carbonate 500mg chew tablet PO PRN (07:23)
[2022-05-24] MEDS: LORazepam 0.5 MG tablet PO SCH ×3 (07:23→20:08)
[2022-05-24 07:32] VITALS: BP 137/96
[2022-05-24] MEDS: NYSTATIN CREAM - 30GM TUBE TP SCH ×2 (08:21→20:00)
--- NOTE | 2022-05-24 15:47 | NUR ---
Nursing Progress Note: Mary Problem : Patient is a 42 y/o female on a 5150 for Grave Disability. Transferred from [facility] by [facility] and admitted to [facility] at 1615. She was pulled from the [place] on 05/13 after she had been standing in it for a few hours. She stated she did this to cool down. She presented at the ER with disorganized thoughts and rambling speech without a plan for food, chcf, and clothing. She has a hx of multiple psychiatric hospitalizations and is connected to services at [facility]. Interventions : Maintained a safe and supportive environment, administered medication per orders with no adverse side effects, provided clear and simple instructions, provided active listening and positive encouragement, encouraged participation on the unit and with ADLs Response : Pt. denies SI, HI, A/VH, she reports looking forward to her interview with the [facility] today at 1500. She continues to c/o BLE pain; PRN Tylenol given. She is dressed with makeup on and wearing street clothes. Pt. has been out of her room more often today and socializing with her roommate. She ate all meals in the dining room with cohorts. Plan : Patient requires crisis stabilization. She continues to require a safe and supportive environment until stabilized.
[2022-05-24] MEDS ORDERED: cloNIDine 0.1 mg tablet PO PRN (16:55)
[2022-05-24 19:54] VITALS: BP 123/83
[2022-05-24] MEDS: traZODone 50mg tablet PO PRN (20:08)
--- NOTE | 2022-05-24 23:53 | NUR ---
Nursing Progress Note: Mary Problem : Patient is a 42 y/o female on a 5150 for Grave Disability. Transferred from [facility] by [facility] and admitted to [facility] at 1615. She was pulled from the [facility] on 05/13 after she had been standing in it for a few hours. She stated she did this to cool down. She presented at the ER with disorganized thoughts and rambling speech without a plan for food, senior care, and clothing. She has a hx of multiple psychiatric hospitalizations and is connected to services at [facility]. Interventions : Maintained a safe and supportive environment, administered medication per orders with no adverse side effects, provided clear and simple instructions, provided active listening and positive encouragement, encouraged participation on the unit and with ADLs Response : Pt. denies SI, HI, A/VH, she denies any pain during this shift. Pt states she is doing well and requests her Ativan and PRN trazadone for her evening meds. Pt up for snacks then returns to her room where she retires for the night. No other requests at this time. Plan : Patient requires crisis stabilization. She continues to require a safe and supportive environment until stabilized.
[2022-05-25] MEDS: nicotine 21mg patch - 24 hr TD SCH (07:12)
[2022-05-25] MEDS: cloNIDine 0.1 mg tablet PO SCH (07:13)
[2022-05-25] MEDS: ibuprofen tablet 400 MG TABLET PO SCH ×3 (07:13→16:46)
[2022-05-25] MEDS: atorvastatin 20mg tablet PO SCH (07:13)
[2022-05-25] MEDS: LIDOcaine 5% patch TP SCH (07:13)
[2022-05-25] MEDS: aripiprazole 5mg tablet PO SCH (07:13)
[2022-05-25] MEDS: venlafaxine XR 75mg capsule (Q24H) PO SCH (07:13)
[2022-05-25] MEDS: LORazepam 0.5 MG tablet PO SCH ×2 (07:14→12:01)
[2022-05-25 07:41] VITALS: BP 138/95
[2022-05-25] MEDS: NYSTATIN CREAM - 30GM TUBE TP SCH ×2 (08:00→20:34)
--- NOTE | 2022-05-25 15:36 | NUR ---
ACCEPTED AT [facility] Mary interviewed with Leopoldo today from [facility] and has been accepted. Called Kalyan at [facility] to inquire when a bed will be available. They should be able to take her early next week (possibly ). FILIPE Ba
[2022-05-25] MEDS ORDERED: asenapine 5mg TAB.SUBL SL ONE (16:25)
--- NOTE | 2022-05-25 16:30 | NUR ---
Nursing Progress Note: Mary Problem : Patient is a 42 y/o female on a 5150 for Grave Disability. Transferred from [facility] by [facility] and admitted to [facility] at 1615. She was pulled from the [place] on 05/13 after she had been standing in it for a few hours. She stated she did this to cool down. She presented at the ER with disorganized thoughts and rambling speech without a plan for food, chcf, and clothing. She has a hx of multiple psychiatric hospitalizations and is connected to services at [facility]. Pt. reports feeling down and depressed today Interventions : Franchise Development Manager continues to provide pt. with a safe and therapeutic environment, clear communication, active listening and positive encouragement. Pt. encouraged to participate on unit and in group therapy, and 1:1 assessment provided with medication administration. Response : Pt. denies SI, HI, A/VH, she reports feeling of depression and also reported extreme fatigue or over medicated; pt. is to speak to provide to review meds today. Pt. had her interview with [facility] today at 1500. She reported minimal pain to BLE today. She is dressed in street clothes and wearing makeup. Pt. has been in her room most of the shift socializing with her roommate. She ate all her meals in the dining room with cohorts. Plan : Patient requires crisis stabilization. She continues to require a safe and supportive environment until stabilized.
[2022-05-25] MEDS ORDERED: traZODone 50mg tablet PO PRN (16:35)
[2022-05-25 20:00] VITALS: BP 98/60
[2022-05-25] MEDS: asenapine 5mg TAB.SUBL SL SCH (20:33)
[2022-05-25] MEDS ORDERED: LORazepam 0.5 MG tablet PO SCH (21:00)
--- NOTE | 2022-05-26 01:01 | NUR ---
Nursing Progress Note: Mary Problem : Patient is a 42 y/o female on a 5150 for Grave Disability. Transferred from [facility] by [facility] and admitted to [facility] at 1615. She was pulled from the [place] on 05/13 after she had been standing in it for a few hours. She stated she did this to cool down. She presented at the ER with disorganized thoughts and rambling speech without a plan for food, custodial, and clothing. She has a hx of multiple psychiatric hospitalizations and is connected to services at [facility]. Pt. reports feeling down and depressed today Interventions : Sanitation Associate continues to provide pt. with a safe and therapeutic environment, clear communication, active listening and positive encouragement. Pt. encouraged to participate on unit and in group therapy, and 1:1 assessment provided with medication administration. Response : Pt lying in bed at change of shift, Pt. denies SI, HI, A/VH, she reports being extremely cold this evening, pt provided warm blanket. She states she is feeling depressed and very tired. Pt declined snacks and took all HS medications without issue. PT isolated to room all evening. NO complaints of BLE this shift. Plan : Patient requires crisis stabilization. She continues to require a safe and supportive environment until stabilized.
[2022-05-26] MEDS: acetaminophen 325mg tablet PO PRN (06:22)
[2022-05-26] MEDS: nicotine 21mg patch - 24 hr TD SCH (06:58)
[2022-05-26] MEDS: LIDOcaine 5% patch TP SCH (06:59)
[2022-05-26] MEDS: asenapine 5mg TAB.SUBL SL SCH (07:01)
[2022-05-26] MEDS: atorvastatin 20mg tablet PO SCH (07:01)
[2022-05-26] MEDS: venlafaxine XR 75mg capsule (Q24H) PO SCH (07:01)
[2022-05-26] MEDS: ibuprofen tablet 400 MG TABLET PO SCH ×2 (07:01→11:50)
[2022-05-26] MEDS: NYSTATIN CREAM - 30GM TUBE TP SCH (08:00)
[2022-05-26] MEDS ORDERED: venlafaxine 37.5mg tablet PO SCH (08:00)
[2022-05-26 08:09] VITALS: BP 141/84
[2022-05-26] MEDS ORDERED: HYDR50TA65 PO (15:30)
[2022-05-26] MEDS ORDERED: CLON0.1T2 PO (15:30)
[2022-05-26] MEDS ORDERED: TRAZ-251 PO (15:30)
[2022-05-26] MEDS ORDERED: IBUP-1984 PO (15:30)
[2022-05-26] MEDS ORDERED: ATOR20TA66 PO (15:30)
[2022-05-26] MEDS ORDERED: MYC15CR TP (15:30)
[2022-05-26] MEDS ORDERED: ASEN5TAB10 SL (15:30)
[2022-05-26] MEDS ORDERED: LORA-269 PO (15:30)
[2022-05-26] MEDS ORDERED: VENL225T3 PO (15:30)
[2022-05-26] MEDS ORDERED: LIDO700A47 TP (15:30)
--- NOTE | 2022-05-26 16:09 | NUR ---
Discharge Note: Pt. reviewed and signed all paperwork and copies were placed in chart. F/U appt on 06/05/22 at [address] Khalil @ [facility],[address] [place] [address] All personal belonging received and taken with pt. She ambulated off the unit @5588.
== END 2022-05-26 16:12 | disposition home or self-care (01) | DRG 885 ==
LOC: ADULT MH 14:35
PROVIDERS: ADMIT Psychiatry & Neurology Psychiatry; ATTEND Psychiatry & Neurology Psychiatry
DX: F33.2 Major depressive disorder, recurrent severe without psychotic features (principal); F15.959 Other stimulant use, unspecified with stimulant-induced psychotic disorder, unspecified; E66.3 Overweight; E78.5 Hyperlipidemia, unspecified; F10.21 Alcohol dependence, in remission; F17.210 Nicotine dependence, cigarettes, uncomplicated; F43.10 Post-traumatic stress disorder, unspecified; I10 Essential (primary) hypertension; N80.9 Endometriosis, unspecified; E78.00 Pure hypercholesterolemia, unspecified; M19.90 Unspecified osteoarthritis, unspecified site; R20.2 Paresthesia of skin; R26.2 Difficulty in walking, not elsewhere classified; Z59.00 Homelessness unspecified; Z68.33 Body mass index [BMI] 33.0-33.9, adult; Z88.0 Allergy status to penicillin; Z88.2 Allergy status to sulfonamides; Z79.899 Other long term (current) drug therapy; Z81.1 Family history of alcohol abuse and dependence; Z81.8 Family history of other mental and behavioral disorders; Z71.6 Tobacco abuse counseling
CPT/HCPCS: 36415; 80053; 80061; 83036; 87081; Q0177

== ENCOUNTER 2022-06-04 18:32 | Inpatient (IN) | payer MEDICARE, MEDICAID ==
[~2022-06-04] VITALS: Ht 174 cm; Wt 107.5 kg
[~2022-06-04 18:32] MED LIST changes: +ASEN5TAB10 SL; +ATOR20TA66 PO; +CLON0.1T2 PO; -ESCI20TA PO; +HYDR50TA65 PO; +IBUP-1984 PO; +LIDO700A47 TP; +LORA-269 PO; +MYC15CR TP; +TRAZ-251 PO; -TRAZ-256 PO; +VENL225T3 PO
[2022-06-04] MEDS ORDERED: acetaminophen 325mg tablet PO PRN (22:10)
[2022-06-04] MEDS ORDERED: loperamide 2mg capsule PO PRN (22:10)
[2022-06-04] MEDS ORDERED: magnesium hydroxide 30ml (MOM) UD suspension PO PRN (22:10)
[2022-06-04 22:25] VITALS: BP 153/95
[2022-06-04] MEDS ORDERED: TRAZ-251 PO (22:51)
[2022-06-04] MEDS ORDERED: ASEN5TAB SL (22:54)
[2022-06-04] MEDS ORDERED: ATOR40TA PO (22:56)
[2022-06-04] MEDS ORDERED: CAT1P PO (22:59)
[2022-06-04] MEDS ORDERED: HYDR-3686 PO (23:02)
[2022-06-04] MEDS ORDERED: LORA-269 PO (23:05)
[2022-06-04] MEDS ORDERED: IBUP-1984 PO (23:10)
[2022-06-04] MEDS ORDERED: LIDO1ADH78 TP (23:14)
[2022-06-04] MEDS ORDERED: MYCOL15CR TP (23:16)
[2022-06-04] MEDS ORDERED: VENL37.589 PO (23:19)
[2022-06-04] MEDS: acetaminophen 325mg tablet PO PRN (23:31)
[2022-06-04] MEDS ORDERED: traZODone 50mg tablet PO ONE (23:50)
[2022-06-04] MEDS ORDERED: LORazepam 1 MG tablet PO ONE (23:50)
[2022-06-05] MEDS ORDERED: LORazepam 1 MG tablet PO ONE (00:05)
[2022-06-05] MEDS ORDERED: traZODone 50mg tablet PO ONE (00:05)
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
[2022-06-05] MEDS: cloNIDine 0.1 mg tablet PO PRN ×3 (01:23→20:59)
[2022-06-05] MEDS: asenapine 5mg TAB.SUBL SL SCH ×2 (07:50→20:00)
[2022-06-05] MEDS: atorvastatin 20mg tablet PO SCH (07:50)
[2022-06-05] MEDS: ibuprofen tablet 400 MG TABLET PO SCH ×3 (07:52→15:17)
[2022-06-05] MEDS: nicotine 21mg patch - 24 hr TD SCH (07:52)
[2022-06-05] MEDS: nystatin/triamcinolone cream 15gm TP SCH ×2 (07:53→20:00)
[2022-06-05] MEDS: LIDOcaine 5% patch TP SCH (07:53)
[2022-06-05 07:55] VITALS: BP 144/90
[2022-06-05] MEDS ORDERED: LORazepam 1 MG tablet PO SCH (08:00)
[2022-06-05] MEDS: hydrOXYzine 25 MG tablet PO SCH ×3 (08:00→15:17)
[2022-06-05] MEDS ORDERED: venlafaxine XR 37.5mg cap (Q24H) PO SCH (08:00)
[2022-06-05 10:38] LABS: CHOL/HDL RATIO 3.4 (0.00-4.99); CHOLESTEROL 132 MG/DL (0-200); HDL CHOLESTEROL 39 MG/DL (35-60); LDL CHOLESTEROL 75 MG/DL (50-100); TRIGLYCERIDES 103 MG/DL (20-135)
[2022-06-05 15:17] VITALS: BP 145/88
[2022-06-05] MEDS ORDERED: traMADol 50MG tablet PO PRN (16:10)
[2022-06-05] MEDS ORDERED: duloxetine 30mg CAPSULE.DR PO ONE (16:10)
[2022-06-05] MEDS: hydrOXYzine 25 MG tablet PO PRN (17:12)
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
[2022-06-05 19:36] VITALS: BP 162/103
[2022-06-05] MEDS: LORazepam 1 MG tablet PO PRN (20:59)
[2022-06-05] MEDS ORDERED: PALIPERIDONE 3 MG TAB.ER.24 PO SCH (21:00)
[2022-06-05] MEDS ORDERED: traZODone 50mg tablet PO SCH (21:00)
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
[2022-06-06] MEDS: atorvastatin 20mg tablet PO SCH (07:25)
[2022-06-06] MEDS: ibuprofen tablet 400 MG TABLET PO SCH ×3 (07:26→16:04)
[2022-06-06] MEDS: duloxetine 30mg CAPSULE.DR PO SCH (07:26)
[2022-06-06] MEDS: nicotine 21mg patch - 24 hr TD SCH (07:27)
[2022-06-06] MEDS: asenapine 5mg TAB.SUBL SL SCH (07:32)
[2022-06-06] MEDS: nystatin/triamcinolone cream 15gm TP SCH ×2 (07:32→20:00)
[2022-06-06] MEDS: LIDOcaine 5% patch TP SCH (08:45)
[2022-06-06] MEDS: hydrOXYzine 25 MG tablet PO PRN (14:49)
[2022-06-06] MEDS: cloNIDine 0.1 mg tablet PO PRN (16:04)
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
[2022-06-06] MEDS: mag hydrox/Alum hydrox/simeth 30ml oral suspension PO PRN (17:08)
[2022-06-06] MEDS: NICOTINE POLACRILEX 2 MG LOZENGE BC PRN ×2 (18:13→21:50)
[2022-06-06 19:51] VITALS: BP 140/85
[2022-06-06] MEDS ORDERED: asenapine 5mg TAB.SUBL SL SCH (21:00)
[2022-06-06] MEDS: traZODone 50mg tablet PO PRN (21:50)
[2022-06-06] MEDS: PALIPERIDONE 3 MG TAB.ER.24 PO SCH (21:50)
[2022-06-07] MEDS: cloNIDine 0.1 mg tablet PO PRN ×3 (00:24→22:24)
[2022-06-07] MEDS: LORazepam 1 MG tablet PO PRN (00:24)
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
[2022-06-07] MEDS: acetaminophen 325mg tablet PO PRN (04:18)
[2022-06-07] MEDS: hydrOXYzine 25 MG tablet PO PRN ×3 (04:18→22:24)
[2022-06-07] MEDS: atorvastatin 20mg tablet PO SCH (07:03)
[2022-06-07] MEDS: NICOTINE POLACRILEX 2 MG LOZENGE BC PRN (07:03)
[2022-06-07] MEDS: duloxetine 30mg CAPSULE.DR PO SCH (07:04)
[2022-06-07] MEDS: nicotine 21mg patch - 24 hr TD SCH (07:05)
[2022-06-07] MEDS: LIDOcaine 5% patch TP SCH (07:05)
[2022-06-07] MEDS: nystatin/triamcinolone cream 15gm TP SCH ×2 (07:06→20:00)
[2022-06-07] MEDS: ibuprofen tablet 400 MG TABLET PO SCH ×3 (07:45→16:10)
[2022-06-07 07:51] VITALS: BP 148/88
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
--- NOTE | 2022-06-07 10:16 | NUR ---
Initial: Pt admit for depression and psychosis. Currently on a regular diet and eating well, documented with mostly 100% PO intake throughout LOS meeting estimated nutrient needs. LBM 06/06. No nutrition diagnosis at this time. Will continue to follow. Recommendations: 1) Continue regular diet 2) Bowel care PRN 3) Weekly scaled weights Addendum: 06/07/22 at [address] Amended: Links added.
[2022-06-07 11:50] VITALS: BP 145/88
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
[2022-06-07] MEDS ORDERED: asenapine 5mg TAB.SUBL SL ONE (17:30)
[2022-06-07 19:52] VITALS: BP 110/56
[2022-06-07] MEDS: LORazepam 1 MG tablet PO SCH (20:39)
[2022-06-07] MEDS: traZODone 50mg tablet PO PRN (20:39)
[2022-06-07] MEDS: PALIPERIDONE 3 MG TAB.ER.24 PO SCH (20:40)
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
[2022-06-08] MEDS ORDERED: gabapentin 400mg capsule PO SCH (06:00)
[2022-06-08] MEDS: gabapentin 100mg capsule PO SCH ×4 (06:44→15:19)
[2022-06-08] MEDS: cloNIDine 0.1 mg tablet PO PRN (06:59)
[2022-06-08 07:22] VITALS: BP 128/91
[2022-06-08] MEDS: ibuprofen tablet 400 MG TABLET PO SCH ×3 (07:28→15:19)
[2022-06-08] MEDS: nicotine 21mg patch - 24 hr TD SCH (07:28)
[2022-06-08] MEDS: duloxetine 30mg CAPSULE.DR PO SCH (07:28)
[2022-06-08] MEDS: atorvastatin 20mg tablet PO SCH (07:28)
[2022-06-08] MEDS: LIDOcaine 5% patch TP SCH (07:29)
[2022-06-08] MEDS: nystatin/triamcinolone cream 15gm TP SCH ×2 (08:00→20:57)
[2022-06-08] MEDS ORDERED: asenapine 5mg TAB.SUBL SL SCH (08:00)
[2022-06-08] MEDS: hydrOXYzine 25 MG tablet PO PRN (08:02)
[2022-06-08] MEDS: asenapine 5mg TAB.SUBL SL SCH ×3 (11:19→16:00)
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
[2022-06-08 19:00] VITALS: BP 129/75
[2022-06-08] MEDS: LORazepam 1 MG tablet PO SCH (20:57)
[2022-06-08] MEDS: traZODone 50mg tablet PO PRN (20:58)
[2022-06-08] MEDS: PALIPERIDONE 3 MG TAB.ER.24 PO SCH (20:58)
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
[2022-06-09] MEDS: mag hydrox/Alum hydrox/simeth 30ml oral suspension PO PRN (04:41)
[2022-06-09] MEDS: gabapentin 100mg capsule PO SCH ×4 (05:48→15:48)
[2022-06-09] MEDS: asenapine 5mg TAB.SUBL SL SCH ×5 (05:49→12:32)
[2022-06-09] MEDS ORDERED: asenapine 5mg TAB.SUBL SL SCH (06:00)
[2022-06-09 07:23] VITALS: BP 149/87
[2022-06-09] MEDS: nystatin/triamcinolone cream 15gm TP SCH ×2 (08:00→20:00)
[2022-06-09] MEDS: nicotine 21mg patch - 24 hr TD SCH (08:23)
[2022-06-09] MEDS: ibuprofen tablet 400 MG TABLET PO SCH ×3 (08:24→14:52)
[2022-06-09] MEDS: LIDOcaine 5% patch TP SCH (08:24)
[2022-06-09] MEDS: atorvastatin 20mg tablet PO SCH (08:24)
[2022-06-09] MEDS: duloxetine 30mg CAPSULE.DR PO SCH (08:24)
--- NOTE | 2022-06-09 15:28 | NUR ---
CASE MANAGEMENT Spoke to Leopoldo from the [facility] today. Mary was accepted to the [facility], first available bed would be Sunday06/12/2022. Linsey Melton LCSW
[2022-06-09] MEDS: cloNIDine 0.1 mg tablet PO PRN (15:48)
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
[2022-06-09 19:26] VITALS: BP 146/93
[2022-06-09] MEDS: traZODone 50mg tablet PO PRN (20:34)
[2022-06-09] MEDS: PALIPERIDONE 3 MG TAB.ER.24 PO SCH (20:34)
[2022-06-09] MEDS: LORazepam 1 MG tablet PO SCH (20:34)
[2022-06-09] MEDS: hydrOXYzine 25 MG tablet PO PRN (20:34)
--- NOTE | 2022-06-10 05:18 | NUR ---
PIR RN NOTE (NOC): LEGAL HOLD: 5250 for GD/DTS INTERVENTION: I. Teach the importance of medication compliance for health and well being. I. Provide calm supportive environment. I.. 1:1 intervention allowing client to express thoughts/feelings. I. Q 15 minute checks for safety. I. Monitor mood, affect, and behavior. I. Encourage group attendance. RESPONSE: Client reported "I just read the Bible and I want to admit I lied. I realize it's wrong. I've been saying I hear voices to get medicine because it make me feel high. I like the way the medicine makes me feel. I thought I should tell you that." This RN thanked the client for reporting it. Clients affect is blunted. Mood is stable. Denies SI/HI. She is medication compliant.
[2022-06-10] MEDS: gabapentin 100mg capsule PO SCH ×4 (06:48→15:29)
[2022-06-10] MEDS: asenapine 5mg TAB.SUBL SL SCH ×4 (06:48→15:28)
[2022-06-10 07:22] VITALS: BP 153/99
[2022-06-10] MEDS: nystatin/triamcinolone cream 15gm TP SCH ×2 (08:00→20:15)
[2022-06-10] MEDS: nicotine 21mg patch - 24 hr TD SCH (08:41)
[2022-06-10] MEDS: ibuprofen tablet 400 MG TABLET PO SCH ×3 (08:41→15:28)
[2022-06-10] MEDS: atorvastatin 20mg tablet PO SCH (08:41)
[2022-06-10] MEDS: duloxetine 30mg CAPSULE.DR PO SCH (08:41)
[2022-06-10] MEDS: LIDOcaine 5% patch TP SCH (08:42)
--- NOTE | 2022-06-10 10:00 | NUR ---
Patient sitting up in chair in room writing in a journal.
[2022-06-10] MEDS: cloNIDine 0.1 mg tablet PO PRN (10:51)
--- NOTE | 2022-06-10 13:30 | NUR ---
Patient sitting in chair again writing in journal again
--- NOTE | 2022-06-10 14:11 | NUR ---
Patient going in for session with Dr. Lopez
[2022-06-10] MEDS ORDERED: duloxetine 30mg CAPSULE.DR PO ONE (14:25)
[2022-06-10] MEDS ORDERED: paliperidone palmitate inj 234 MG/1.5 ML SYRINGE IM ONE (14:35)
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
[2022-06-10] MEDS: NICOTINE POLACRILEX 2 MG LOZENGE BC PRN (15:32)
[2022-06-10] MEDS: hydrOXYzine 25 MG tablet PO PRN (15:56)
--- NOTE | 2022-06-10 18:56 | NUR ---
Patient sent to XRAY with tech. Patient cooperative and appropriate.
[2022-06-10 20:00] VITALS: BP 147/97
[2022-06-10] MEDS: LORazepam 1 MG tablet PO SCH (20:10)
[2022-06-10] MEDS: PALIPERIDONE 3 MG TAB.ER.24 PO SCH (20:10)
[2022-06-10] MEDS: traZODone 50mg tablet PO PRN (21:06)
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
[2022-06-11] MEDS: NICOTINE POLACRILEX 2 MG LOZENGE BC PRN ×3 (04:45→18:01)
[2022-06-11] MEDS: gabapentin 100mg capsule PO SCH ×4 (05:30→16:00)
[2022-06-11] MEDS: asenapine 5mg TAB.SUBL SL SCH ×4 (05:30→16:00)
[2022-06-11 07:54] VITALS: BP 124/84
[2022-06-11] MEDS: duloxetine 30mg CAPSULE.DR PO SCH (08:15)
[2022-06-11] MEDS: atorvastatin 20mg tablet PO SCH (08:15)
[2022-06-11] MEDS: ibuprofen tablet 400 MG TABLET PO SCH ×3 (08:15→15:30)
[2022-06-11] MEDS: nicotine 21mg patch - 24 hr TD SCH (08:17)
[2022-06-11] MEDS: LIDOcaine 5% patch TP SCH (08:18)
[2022-06-11] MEDS: nystatin/triamcinolone cream 15gm TP SCH ×2 (08:27→20:00)
[2022-06-11] MEDS: cloNIDine 0.1 mg tablet PO PRN (10:57)
[2022-06-11] MEDS: hydrOXYzine 25 MG tablet PO PRN ×2 (10:57→19:31)
[2022-06-11] MEDS ORDERED: CAT1P PO (12:16)
[2022-06-11] MEDS ORDERED: DULO30CA52 PO (12:16)
[2022-06-11] MEDS ORDERED: NICO-907 BC (12:16)
[2022-06-11] MEDS ORDERED: ATOR40TA PO (12:16)
[2022-06-11] MEDS ORDERED: HYDR50TA65 PO (12:16)
[2022-06-11] MEDS ORDERED: GABA-530 PO (12:16)
[2022-06-11] MEDS ORDERED: TRAZ-256 PO (12:16)
[2022-06-11] MEDS ORDERED: ASEN5TAB SL (12:16)
[2022-06-11] MEDS ORDERED: IBUP-1984 PO (12:16)
[2022-06-11] MEDS ORDERED: PALI156D IM (12:33)
[2022-06-11] MEDS ORDERED: PALI9TAB4 PO (12:38)
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
[2022-06-11 20:07] VITALS: BP 121/72
[2022-06-11] MEDS: PALIPERIDONE 3 MG TAB.ER.24 PO SCH (20:58)
[2022-06-11] MEDS: traZODone 50mg tablet PO PRN (20:58)
[2022-06-11] MEDS: LORazepam 1 MG tablet PO SCH (20:58)
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
[2022-06-12] MEDS: gabapentin 100mg capsule PO SCH ×4 (05:39→16:12)
[2022-06-12] MEDS: asenapine 5mg TAB.SUBL SL SCH ×4 (05:39→16:12)
[2022-06-12] MEDS: nystatin/triamcinolone cream 15gm TP SCH ×2 (07:20→20:18)
[2022-06-12] MEDS: atorvastatin 20mg tablet PO SCH (07:20)
[2022-06-12] MEDS: duloxetine 30mg CAPSULE.DR PO SCH (07:20)
[2022-06-12] MEDS: LIDOcaine 5% patch TP SCH (07:22)
[2022-06-12] MEDS: nicotine 21mg patch - 24 hr TD SCH (07:22)
[2022-06-12 08:00] VITALS: BP 125/81
[2022-06-12] MEDS: ibuprofen tablet 400 MG TABLET PO SCH ×3 (09:07→16:12)
[2022-06-12] MEDS: cloNIDine 0.1 mg tablet PO PRN (09:08)
--- NOTE | 2022-06-12 10:11 | NUR ---
DCP Presenting Issues: Pt's been accepted @ [facility], d/c is pending meds delivery. Interventions: Clinician had t/c francisca James @ [facility] to f/u on pt's meds order, per t/c [facility] won't be able to deliver meds today as they need to order some of the meds as they currently don't have them in stock. [facility] informed. Plan: Pt to d/c tomorrow at 1PM. Lyssa Otero LCSW Addendum: 06/12/22 at 1019 by Lyssa Otero SS Amended: Links added.
[2022-06-12] MEDS: hydrOXYzine 25 MG tablet PO PRN ×2 (11:39→16:35)
[2022-06-12] MEDS: NICOTINE POLACRILEX 2 MG LOZENGE BC PRN (11:39)
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
[2022-06-12 19:21] VITALS: BP 115/66
[2022-06-12] MEDS: PALIPERIDONE 3 MG TAB.ER.24 PO SCH (20:17)
[2022-06-12] MEDS: traZODone 50mg tablet PO PRN (20:18)
[2022-06-12] MEDS: LORazepam 1 MG tablet PO SCH (20:18)
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
[2022-06-13] MEDS: gabapentin 100mg capsule PO SCH ×3 (05:35→12:57)
[2022-06-13] MEDS: asenapine 5mg TAB.SUBL SL SCH ×3 (05:35→12:57)
[2022-06-13] MEDS: NICOTINE POLACRILEX 2 MG LOZENGE BC PRN (05:49)
[2022-06-13 07:23] VITALS: BP 126/86
[2022-06-13] MEDS: atorvastatin 20mg tablet PO SCH (07:37)
[2022-06-13] MEDS: duloxetine 30mg CAPSULE.DR PO SCH (07:37)
[2022-06-13] MEDS: ibuprofen tablet 400 MG TABLET PO SCH ×2 (07:38→12:57)
[2022-06-13] MEDS: nicotine 21mg patch - 24 hr TD SCH (07:41)
[2022-06-13] MEDS: LIDOcaine 5% patch TP SCH (08:00)
[2022-06-13] MEDS: nystatin/triamcinolone cream 15gm TP SCH (08:00)
--- NOTE | 2022-06-13 08:19 | NUR ---
CM-Continuity of Care Presenting Issues: Pt's scheduled to d/c this afternoon, clinician received vm from [facility], per vm, a couple of pt's meds cannot be filled @ this time as it's still too early to fill. Interventions: Clinician contacted pt's mother via phone, left requesting that mother bring in pt's home meds during visiting hour today so pt's RN and review them. [facility] DCP notified of situation. Clinician consulted w/attending physician, per consultation, physician can amend med order to request that the outpatient physician review meds and resume the meds that can't be refill now. Plan: Clinician will contact [facility] to gather additional info re the meds that they can't fill yet. Lyssa Otero LCSW Addendum: 06/13/22 at 0822 by Lyssa Otero SS Amended: Links added.
[2022-06-13] MEDS ORDERED: ketorolac trometh. 30mg/ml inj. IM ONE (09:40)
[2022-06-13] MEDS ORDERED: ketorolac tromethamine 15mg/ml inj. IM ONE (09:55)
--- NOTE | 2022-06-13 13:20 | NUR ---
DISCHARGE NOTE: Pt. discharged to [facility]. picked up by [facility] uke driver. Pt. discharged with all belongings and valuables. RN went through discharge paperwork. Pt. verbalized understanding of discharge plan and medications, firearms restrictions, emergency phone numbers (including 911). Pt. signed all d/c paperwork. Pt. discharged with medications given to [facility] uke driver. Pt. is A&Ox4 and denies SI/HI, A/V hallucinations.
--- NOTE | 2022-06-13 13:25 | NUR ---
Discharge All discharging meds had been accounted for, pt was discharge and picked by [facility] truck driver teamster to transition to [facility] for additional support. Lyssa Otero LCSW Addendum: 06/13/22 at 1337 by Lyssa Otero SS Amended: Links added.
== END 2022-06-13 13:20 | DRG 885 ==
LOC: ADULT MH 21:15
PROVIDERS: ADMIT Psychiatry & Neurology Psychiatry; ATTEND Psychiatry & Neurology Psychiatry
DX: F29 Unspecified psychosis not due to a substance or known physiological condition (principal); F33.2 Major depressive disorder, recurrent severe without psychotic features; Z20.822 Contact with and (suspected) exposure to COVID-19; E66.3 Overweight; F17.210 Nicotine dependence, cigarettes, uncomplicated; F10.10 Alcohol abuse, uncomplicated; M79.89 Other specified soft tissue disorders; F15.159 Other stimulant abuse with stimulant-induced psychotic disorder, unspecified; I10 Essential (primary) hypertension; F60.9 Personality disorder, unspecified; N80.9 Endometriosis, unspecified; R52 Pain, unspecified; E78.5 Hyperlipidemia, unspecified; F43.12 Post-traumatic stress disorder, chronic; Z88.0 Allergy status to penicillin; Z59.01 Sheltered homelessness; Z88.2 Allergy status to sulfonamides; Z79.899 Other long term (current) drug therapy; Z81.1 Family history of alcohol abuse and dependence; Z81.8 Family history of other mental and behavioral disorders; Z68.35 Body mass index [BMI] 35.0-35.9, adult; Z71.6 Tobacco abuse counseling; Z59.00 Homelessness unspecified
CPT/HCPCS: 36415; 71045; 73590; 80061; 87081; 87502; 87503; 87811; 93970; J2426; Q0177

== ENCOUNTER 2023-05-17 08:18 | Emergency (ER) | payer MEDICARE, MEDICAID ==
[~2023-05-17] VITALS: Ht 175.3 cm; Wt 113.6 kg
[~2023-05-17 08:18] MED LIST changes: +ASEN5TAB SL; -ASEN5TAB10 SL; -ATOR20TA66 PO; +ATOR40TA PO; +CAT1P PO; -CLON0.1T2 PO; +DULO30CA52 PO; +GABA-530 PO; -LIDO700A47 TP; -LORA-269 PO; -MYC15CR TP; +NICO-907 BC; +PALI156D IM; +PALI9TAB4 PO; -TRAZ-251 PO; +TRAZ-256 PO; -VENL225T3 PO
[2023-05-17 08:19] VITALS: BP 85/120
== END 2023-05-17 08:43 | disposition left against medical advice (07) ==
LOC: ER 08:18
DX: F29 Unspecified psychosis not due to a substance or known physiological condition (principal); Z53.21 Procedure and treatment not carried out due to patient leaving prior to being seen by health care provider
CPT/HCPCS: 99281

== ENCOUNTER 2023-07-01 11:14 | Emergency (ER) | payer MEDICARE, MEDICAID ==
[~2023-07-01] VITALS: Ht 175.3 cm; Wt 91.4 kg
[2023-07-01 11:16] VITALS: BP 145/89; PULSE 91; RESP 17; TEMP 98.2; O2SAT 96
[2023-07-01 12:01] LABS: BILIRUBIN,URINE NEGATIVE (Neg); GLUCOSE, URINE NEGATIVE (Neg); KETONES,URINE NEGATIVE (Neg); LEUKOCYTE ESTERASE ,URINE NEGATIVE (Neg); NITRITES, URINE NEGATIVE (Neg); OCCULT BLOOD,URINE MODERATE (Neg); PH,URINE 5.5 (4.8-8.0); PROTEIN,URINE NEGATIVE (Neg); URINE HCG NEGATIVE (NEG); UROBILINOGEN,URINE 0.2 E.U/dL (0.2-1.0)
[2023-07-01 12:01] LABS: MEAN CORPUSCULAR HGB CONC 35.4 g/dL (33.0-36.5); MEAN CORPUSCULAR VOLUME 85.7 FL (78-98); MONOCYTES # (AUTO) 0.7 X10'3 (0-0.9)
[2023-07-01 12:02] LABS: BASOPHILS % (AUTO) 0.5 % (0-1); EOSINOPHILS # (AUTO) 0.2 X10'3 (0-0.9); EOSINOPHILS % (AUTO) 2.5 % (0-6); HEMOGLOBIN 15.2 g/dl (12.0-16.0); LYMPHOCYTES # (AUTO) 3.2 X10'3 (1.1-4.8); LYMPHOCYTES % (AUTO) 34.8 % (21-51); MEAN CORPUSCULAR HEMOGLOBIN 30.4 PG (27.0-31.0); MEAN PLATELET VOLUME 6.7 FL (7.4-10.4); MONOCYTES % (AUTO) 7.1 % (2-12); NEUTROPHILS # (AUTO) 5.1 X10'3 (1.8-7.7); NEUTROPHILS % (AUTO) 55.1 % (42-75); PLATELET COUNT 342 X10'3 (140-440); RED BLOOD COUNT 5.02 X10'6 (4.20-5.60); WHITE BLOOD COUNT 9.2 X10'3 (4.5-11.0)
[2023-07-01 12:05] LABS: CLARITY,URINE SLIGHTLY CLOUDY (Clear); COLOR,URINE STRAW (Yellow); UA COLLECTION TYPE CLN CATCH MIDSTREAM
[2023-07-01 12:07] LABS: ALANINE AMINOTRANSFERASE 19 U/L (12-78); ALBUMIN 3.9 G/DL (3.4-5.0); ALBUMIN/GLOBULIN RATIO 1.1 (1.1-1.5); ALKALINE PHOSPHATASE 67 IU/L (46-116); ANION GAP 7 (8-16); ASPARTATE AMINO TRANSFERASE 15 U/L (10-37); BILIRUBIN,TOTAL 0.9 MG/DL (0.1-1.0); BLOOD UREA NITROGEN 9 MG/DL (7-18); BUN/CREATININE RATIO 8.3 (10.0-20.0); CALCIUM 8.8 MG/DL (8.5-10.1); CHLORIDE 97 MMOL/L (99-107); CREATININE 1.09 MG/DL (0.40-0.90); GLUCOSE 91 MG/DL (70-104); LIPASE 73 U/L (73-393); POTASSIUM 3.8 MMOL/L (3.5-5.1); SODIUM 132 MMOL/L (135-145); TOTAL CARBON DIOXIDE 27.9 MMOL/L (24-32); TOTAL PROTEIN 7.5 G/DL (6.4-8.2); eCRCL 69 ML/MIN; eGFR 66 ML/MIN
[2023-07-01 12:11] LABS: BACTERIA,URINE FEW /HPF (Neg); MUCUS STRANDS NONE SEEN /LPF (Neg); RBC,URINE 0-2 /HPF (0-2); SQUAMOUS EPITHELIAL CELL,UR MODERATE /LPF (FEW); WBC,URINE 0-4 /HPF (0-4)
== END 2023-07-01 13:37 | disposition left against medical advice (07) ==
LOC: ER 11:14
DX: R10.9 Unspecified abdominal pain (principal); R06.02 Shortness of breath; Z53.21 Procedure and treatment not carried out due to patient leaving prior to being seen by health care provider
CPT/HCPCS: 36415; 80053; 81001; 81025; 83690; 85025; 99281

== ENCOUNTER 2024-02-28 09:27 | Outpatient (CLI) | payer MEDICARE, MEDICAID | END 2024-02-28 23:59 | disposition home or self-care (01) | LOC: RAD 09:27 | PROVIDERS: ATTEND Nurse Practitioner Family | DX: S09.90XA Unspecified injury of head, initial encounter (principal); X58.XXXA Exposure to other specified factors, initial encounter; Y93.89 Activity, other specified; Y92.89 Other specified places as the place of occurrence of the external cause; Y99.8 Other external cause status | CPT/HCPCS: 70450 ==

== ENCOUNTER 2024-02-28 10:28 | Emergency (ER) | payer MEDICARE, MEDICAID ==
[~2024-02-28] VITALS: Ht 175.3 cm; Wt 107.3 kg
[2024-02-28 10:45] VITALS: TEMP 98
[2024-02-28] MEDS ORDERED: iohexol 350MG/ML 100ml bottle IV ONE (11:01)
[2024-02-28 11:43] LABS: BASOPHILS # (AUTO) 0.1 X10'3 (0-0.2); BASOPHILS % (AUTO) 1.2 % (0-1); EOSINOPHILS # (AUTO) 0.2 X10'3 (0-0.9); EOSINOPHILS % (AUTO) 2.8 % (0-6); HEMATOCRIT 42.1 % (35.0-45.0); HEMOGLOBIN 14.1 g/dl (12.0-16.0); LYMPHOCYTES # (AUTO) 2.1 X10'3 (1.1-4.8); LYMPHOCYTES % (AUTO) 32.4 % (21-51); MEAN CORPUSCULAR HEMOGLOBIN 28.7 PG (27.0-31.0); MEAN CORPUSCULAR HGB CONC 33.5 g/dL (33.0-36.5); MEAN CORPUSCULAR VOLUME 85.8 FL (78-98); MEAN PLATELET VOLUME 6.7 FL (7.4-10.4); MONOCYTES # (AUTO) 0.5 X10'3 (0-0.9); MONOCYTES % (AUTO) 7.8 % (2-12); NEUTROPHILS # (AUTO) 3.6 X10'3 (1.8-7.7); NEUTROPHILS % (AUTO) 55.8 % (42-75); PLATELET COUNT 310 X10'3 (140-440); RED BLOOD COUNT 4.91 X10'6 (4.20-5.60); RED CELL DISTRIBUTION WIDTH 14.4 % (11.5-14.5); WHITE BLOOD COUNT 6.4 X10'3 (4.5-11.0)
[2024-02-28 11:51] LABS: ALBUMIN 3.3 G/DL (3.4-5.0); ANION GAP 8 (8-16); BLOOD UREA NITROGEN 11 MG/DL (7-18); BUN/CREATININE RATIO 10.8 (10.0-20.0); CALCIUM 8.5 MG/DL (8.5-10.1); CHLORIDE 105 MMOL/L (99-107); CREATININE 1.02 MG/DL (0.40-0.90); GLUCOSE 80 MG/DL (70-104); SODIUM 139 MMOL/L (135-145); TOTAL CARBON DIOXIDE 26.3 MMOL/L (24-32); eCRCL 74 ML/MIN; eGFR 59 ML/MIN
[2024-02-28 11:56] LABS: APTT 24 SECONDS (22-32); PROTHROMBIN TIME 10.3 SECONDS (9.0-12.0)
[2024-02-28] MEDS: diphenhydrAMINE 50 mg/ml inj IV ONE (12:07)
[2024-02-28] MEDS: metoclopramide 5 mg/ml inj IV ONE (12:09)
[2024-02-28] MEDS: ketorolac tromethamine 15mg/ml inj. IV ONE (12:15)
[2024-02-28] MEDS: ringers solution, lacted 1,000 ML IV ONE (12:20)
[2024-02-28 13:48] VITALS: BP 138/91; PULSE 72; RESP 18; O2SAT 97
== END 2024-02-28 13:49 | disposition home or self-care (01) ==
LOC: ER 10:28
DX: R51.9 Headache, unspecified (principal); I10 Essential (primary) hypertension; M19.90 Unspecified osteoarthritis, unspecified site; F41.9 Anxiety disorder, unspecified; F32.9 Major depressive disorder, single episode, unspecified; Z88.0 Allergy status to penicillin; Z88.2 Allergy status to sulfonamides
CPT/HCPCS: 36415; 70450; 70496; 70498; 71045; 80048; 82948; 85025; 85610; 85730; 93005; 96361; 96374; 96375; 99285; J1200; J1885; J2765; J3490; J7120; Q9967

== ENCOUNTER 2025-07-14 14:27 | Outpatient (CLI) | payer MEDICARE, MEDICAID ==
[~2025-07-14 14:27] MED LIST changes: +IBUP600T52 PO
[2025-07-14] MEDS ORDERED: GADOTERATE MEGLUMINE 7.5 MMOL/15 ML VIAL IV ONE (18:38)
--- NOTE | 2025-07-14 19:00 | RADIOLOGY REPORT ---
CLINICAL HISTORY: NEUROLOGICAL DYSFUNCTION TECHNIQUE: Routine multiplanar imaging of the brain was performed without gadolinium contrast. COMPARISON: CT CTA NECK/HEAD on DOS: 05/26/25, CT CT HEAD on DOS: 05/26/25, CT CT STROKE ALERT on DOS: 02/28/24, CT CT HEAD on DOS: 02/28/24 FINDINGS: There is no abnormal restricted diffusion to suggest acute infarction. There are scattered T2 hyperintense foci within the white matter of both [place] hemispheres, which ar e most compatible with the mild burden of nonspecific chronic small vessel ischemic change. There is no evidence for acute ischemic changes, mass, mass effect, or extra-axial fluid collection. There is no hydrocephalus or midline shift. The cerebral sulci and subarachnoid cisterns are not effa sarah. The imaged paranasal sinuses are clear. The globes are intact. The midline structures, including the corpus callosum, are unremarkable. The intracranial flow voids are maintained. IMPRESSION: No acute intracranial abnormality seen. No evidence for acute infarct. Mild chronic small vessel ischemic change.
== END 2025-07-14 23:59 | disposition home or self-care (01) ==
LOC: MRI 14:27
PROVIDERS: ATTEND Family Medicine
DX: I67.82 Cerebral ischemia (principal); R29.90 Unspecified symptoms and signs involving the nervous system; I67.89 Other cerebrovascular disease
CPT/HCPCS: 70553; A9575